=== PATIENT | female | born 1980 | race Caucasian/White ===

== ENCOUNTER 2019-09-21 18:01 | Inpatient (IN) ==
[2019-09-21] MEDS ORDERED: ONDANSETRON 4 MG/2 ML VIAL IV PRN (20:57)
[2019-09-21] MEDS ORDERED: ACETAMINOPHEN 325 MG TABLET PO PRN (20:57)
[2019-09-21] MEDS ORDERED: ALBUTEROL 2.5 MG/3 ML NEB RESP TX PRN (21:00)
[2019-09-21] MEDS ORDERED: MORPHINE 4 MG/1 ML VIAL IV PRN (21:00)
[2019-09-21] MEDS ORDERED: LORazepam 2 MG/1 ML VIAL IV PRN (21:03)
[2019-09-21] MEDS ORDERED: fentaNYL INJ 1,250 MCG in SODIUM CHLORIDE 0.9% 225 ML IV PRN (21:19)
[2019-09-21 21:47] LABS: ABG HCO3 19.6 MMOL/L (20-26); ABG Oxygen Saturation 99.6 % (95-100); ABG PH 7.294 (7.35-7.45); ABG TCO2 18.2 MMOL/L (23-27)
[2019-09-21] MEDS ORDERED: MULTIVITAMIN INJ 10 ML in SODIUM CHLORIDE 0.9% 1,000 ML IV SCH (22:00)
[2019-09-21 22:31] LABS: Basophils % 0.3 % (0.0-0.8); Eosinophils % 0.3 % (0.00-10.9); Hematocrit 38.7 VOL% (35.7-47.0); Hemoglobin 12.6 GM/DL (12.0-16.0); Immature Granulocytes % 0.3 %; Immature Granulocytes Absolute 0.02 #; Lymphocytes # 1.4 10*3/uL (1.4-4.0); Lymphocytes % 21.8 % (21.3-54.2); Mean Corpuscular HGB Conc 32.6 GM/DL (32-36); Mean Corpuscular Volume 93.3 FL (87-102); Monocytes % 5.6 % (1.7-12.7); Neutrophils % 71.7 % (38.7-73.9); Platelet Count 175 T/CUMM (130-400); Red Blood Count 4.15 MC/CUMM (3.8-5.5); Red Cell Distribution Width 13.3 % (9.3-17.3); White Blood Count 6.6 T/CUMM (4-12)
[2019-09-21 22:45] LABS: PT Patient Result 11.2 SECS (9.6-12.2)
[2019-09-21] MEDS: DEXTROSE 5% NACL 0.45% 1,000 ML IV SCH (22:56)
[2019-09-21 22:57] LABS: Alanine Aminotransferase 20 U/L (13-56); Albumin 3.4 G/DL (3.4-5.0); Alkaline Phosphatase 88 U/L (45-117); Aspartate Amino Transferase 22 U/L (0-37); Bilirubin,Total < 0.39 MG/DL (0.2-1.0); Blood Urea Nitrogen 9 MG/DL (7-18); Calcium 7.7 MG/DL (8.5-10.1); Estimated Glom Filtration Rate 107 ML/MIN; Glucose 80 MG/DL (74-106); Osmolality,Calculated 270.8 MOS/KG (273-304); Total Protein 6.5 G/DL (6.4-8.3)
[2019-09-22] MEDS: ALBUTEROL 2.5 MG/3 ML NEB RESP TX SCH ×4 (00:21→19:50)
[2019-09-22 00:36] LABS: Apearance,Urine CLOUDY (Clear); Bilirubin,Urine Negative (Negative); Blood, Urine Moderate mg/dL (Negative); Calcium Oxalate Crystals,Urine Occasional /HPF (Few); Glucose,Urine (UA) 50 mg/dL (Negative); Hyaline Casts,Urine 8 /LPF (0-3); Ketones,Urine Negative (Negative); Mucus,Urine Occasional /LPF (Occasional); Nitrite,Urine Negative (Negative); Protein,Urine Negative; RBC,Urine 4 /HPF (0-4); Squamous Epithelial Cell,Urine Occasional /HPF (0-10); Uric Acid Crystals,Urine Occasional /HPF (<1); Urine Color Yellow (Yellow); Urine Specific Gravity 1.015 (1.001-1.035); Urine Urobilinogen < 2.0 EU/DL (0.2-1.0); WBC,Urine 1 /HPF (0-6)
[2019-09-22 00:45] LABS: Barbiturates Screen,Urine Negative (Negative); Benzodiazepines Screen,Urine Positive (Negative); Cannabinoid Screen,Urine Negative (Negative); Opiate Screen,Urine Negative (Negative); Phencyclidine Screen,Urine Negative (Negative)
[2019-09-22 04:39] LABS: ABG Base Excess -1.3 MMOL/L (-2.5-2.5); ABG HCO3 23.4 MMOL/L (20-26); ABG Oxygen Saturation 99.8 % (95-100); ABG PH 7.353 (7.35-7.45); ABG TCO2 21.8 MMOL/L (23-27); Allen Test Positive; Pt O2 Delivery Device Ventilator
[2019-09-22 06:23] LABS: Basophils % 0.3 % (0.0-0.8); Eosinophils % 0.5 % (0.00-10.9); Hematocrit 38.3 VOL% (35.7-47.0); Hemoglobin 12.5 GM/DL (12.0-16.0); Immature Granulocytes % 0.3 %; Immature Granulocytes Absolute 0.02 #; Lymphocytes # 2.1 10*3/uL (1.4-4.0); Lymphocytes % 26.2 % (21.3-54.2); Mean Corpuscular HGB Conc 32.6 GM/DL (32-36); Mean Corpuscular Volume 93.6 FL (87-102); Mean Platelet Volume 9.5 FL (9.6-12.0); Neutrophils % 65.7 % (38.7-73.9); Platelet Count 182 T/CUMM (130-400); Red Blood Count 4.09 MC/CUMM (3.8-5.5); Red Cell Distribution Width 13.4 % (9.3-17.3); White Blood Count 7.9 T/CUMM (4-12)
[2019-09-22 06:37] LABS: Alanine Aminotransferase 19 U/L (13-56); Albumin 3.3 G/DL (3.4-5.0); Alkaline Phosphatase 91 U/L (45-117); Aspartate Amino Transferase 20 U/L (0-37); Bilirubin,Total < 0.39 MG/DL (0.2-1.0); Blood Urea Nitrogen 6 MG/DL (7-18); Calcium 7.6 MG/DL (8.5-10.1); Estimated Glom Filtration Rate 125 ML/MIN; Glucose 103 MG/DL (74-106); Osmolality,Calculated 272.7 MOS/KG (273-304); Risk Ratio 2.14; Total Protein 6.2 G/DL (6.4-8.3)
[2019-09-22] MEDS: DEXTROSE 5% NACL 0.45% 1,000 ML IV SCH ×2 (06:38→15:47)
[2019-09-22 06:45] LABS: Folate > 24.0 NG/ML (5.4-24.0); Vitamin B12 501 PG/ML (211-911)
[2019-09-22] MEDS ORDERED: THIAMINE 200 MG/2 ML VIAL IV SCH (09:00)
[2019-09-22] MEDS ORDERED: FOLIC ACID INJ 1 MG in SYRINGE 1 EACH IV SCH (09:00)
[2019-09-22] MEDS ORDERED: PANTOPRAZOLE 40 MG VIAL IV SCH (09:00)
[2019-09-22] MEDS: ENOXAPARIN 40 MG/0.4 ML SYRINGE SUBCUT SCH (09:14)
[2019-09-22] MEDS ORDERED: LORazepam 2 MG/1 ML VIAL ONE (11:47)
[2019-09-22] MEDS ORDERED: LORazepam 2 MG/1 ML VIAL IV ONE (11:51)
[2019-09-22] MEDS ORDERED: PHENOL 1.4% THROAT SPRAY 177 ML BOTTLE PO PRN (13:39)
[2019-09-22] MEDS: IBUPROFEN 600 MG TABLET PO PRN (18:10)
[2019-09-23] MEDS: ALBUTEROL 2.5 MG/3 ML NEB RESP TX SCH ×3 (00:19→13:29)
[2019-09-23] MEDS: IBUPROFEN 600 MG TABLET PO PRN ×2 (02:12→08:40)
[2019-09-23] MEDS: ENOXAPARIN 40 MG/0.4 ML SYRINGE SUBCUT SCH (08:40)
[2019-09-23 12:38] VITALS: BP 118/78
== END 2019-09-23 17:52 | disposition home or self-care (01) | DRG 917 ==
LOC: N.CC 19:58 → SUATTDRO 19:58 → INTOOBSV 19:58 → SUPCPDRO 09-22 07:37
PROVIDERS: ADMIT Internal Medicine; ATTEND Family Medicine